=== PATIENT | female | born 2000 | race Hispanic/Latino ===

== ENCOUNTER 2022-10-03 21:30 | Emergency (ER) | payer OTHER ==
[~2022-10-03] VITALS: Ht 154.9 cm; Wt 57.0 kg
[2022-10-04 05:32] LABS: BASO % 0.6 % (0.0-1.0); EOS # 0.2 10^3/uL (0.0-0.5); EOS % 2.7 % (0.0-3.0); HEMATOCRIT 33.6 % (36.0-47.0); HEMOGLOBIN 11.5 g/dl (12.0-15.5); MEAN CORPUSCULAR HEMOGLOBIN 29.9 pg (27.0-33.0); MEAN CORPUSCULAR HGB CONC 34.2 g/dl (32.0-36.5); MEAN CORPUSCULAR VOLUME 87.3 fl (80.0-96.0); MONO # 0.6 10^3/uL (0.0-0.8); MONO % 9.1 % (2.0-8.0); NEUTROPHILS % 58.2 % (36.0-66.0); PLATELET COUNT, AUTOMATED 272 10^3/uL (150-450); RED BLOOD COUNT 3.85 10^6/uL (4.00-5.40); WHITE BLOOD COUNT 6.9 10^3/uL (4.0-10.0)
[2022-10-04 05:51] LABS: LIPASE 26 U/L (12-53)
[2022-10-04 05:53] LABS: ALBUMIN 3.5 G/DL (3.2-5.2); ALKALINE PHOSPHATASE 53 U/L (46-116); ALT/SGPT 13 U/L (7.0-40); AST/SGOT 17 U/L (<34); BILIRUBIN,DIRECT 0.1 MG/DL (<0.4); BILIRUBIN,TOTAL 0.4 MG/DL (0.3-1.2); BLOOD UREA NITROGEN 9 MG/DL (9-23); CALCIUM LEVEL 8.7 MG/DL (8.5-10.1); CARBON DIOXIDE LEVEL 23 MMOL/L (20-31); CHLORIDE LEVEL 106 MMOL/L (98-107); CREATININE FOR GFR 0.57 MG/DL (0.55-1.30); GLOMERULAR FILTRATION RATE > 60.0 (>60); GLUCOSE, FASTING 83 MG/DL (60-100); POTASSIUM SERUM 3.8 MMOL/L (3.5-5.1); SODIUM LEVEL 137 MMOL/L (136-145); TOTAL PROTEIN 6.4 G/DL (5.7-8.2)
[2022-10-04 06:21] LABS: HCG, SERUM QUANTITATIVE 145231.9 MIU/ML (<4.2)
[2022-10-04] MEDS ORDERED: NS 1,000 ML IV ONE (07:10)
[2022-10-04 07:42] LABS: APPEARANCE, URINE HAZY (CLEAR); BACTERIA, URINE AUTO NEGATIVE (NEGATIVE); BILIRUBIN, URINE AUTO NEGATIVE (NEGATIVE); BLOOD, URINE BLOOD NEGATIVE (NEGATIVE); COLOR, URINE YELLOW (YELLOW); GLUCOSE, URINE (UA) AUTO NEGATIVE (NEGATIVE); KETONE, URINE AUTO 1+ mg/dL (NEGATIVE); LEUKOCYTE ESTERASE, URINE AUTO 2+ (NEGATIVE); MUCUS, URINE SMALL (NEGATIVE); NITRITE, URINE AUTO NEGATIVE (NEGATIVE); PROTEIN, URINE AUTO NEGATIVE (NEGATIVE); RBC, URINE AUTO 1 /HPF (0-3); SPECIFIC GRAVITY URINE AUTO 1.009 (1.002-1.035); SQUAMOUS EPITHELIAL CELL UR AU 4 /HPF (0-6); UROBILINOGEN, URINE AUTO 0.2 mg/dL (0.0-2.0); WBC, URINE AUTO 1 /HPF (0-3)
[2022-10-04 11:06] VITALS: BP 112/60
== END 2022-10-04 11:31 | disposition home or self-care (01) ==
LOC: M ED 21:30
DX: O99.611 Diseases of the digestive system complicating pregnancy, first trimester (principal); Z3A.12 12 weeks gestation of pregnancy

== ENCOUNTER 2023-04-07 19:44 | Outpatient (CLI) | payer OTHER ==
[~2023-04-07] VITALS: Ht 154.9 cm; Wt 76.0 kg
[2023-04-07] MEDS ORDERED: HOME MED LIST COMPLETE! XX SCH (19:55)
[2023-04-07] MEDS ORDERED: IRON27TA2 PO (19:55)
[2023-04-07] MEDS ORDERED: PRENTAB9 PO (19:55)
[2023-04-07] MEDS ORDERED: VITA500C24 PO (19:55)
[2023-04-07 20:03] VITALS: BP 126/66
== END 2023-04-07 20:56 | disposition home or self-care (01) ==
LOC: M LDO 19:44
PROVIDERS: ATTEND Obstetrics & Gynecology
DX: O47.1 False labor at or after 37 completed weeks of gestation (principal); Z3A.39 39 weeks gestation of pregnancy; Z91.040 Latex allergy status; Z91.018 Allergy to other foods
CPT/HCPCS: 59025; G0463

== ENCOUNTER 2023-04-21 15:59 | Inpatient (IN) | payer OTHER ==
[~2023-04-21] VITALS: Ht 154.9 cm; Wt 75.2 kg
[2023-04-21] VITALS (8 sets, daily range): BP systolic 112–138; BP diastolic 55–72; O2SAT 97
[~2023-04-21 15:59] MED LIST: IRON27TA2 PO; PRENTAB9 PO; VITA500C24 PO
[2023-04-21] MEDS ORDERED: LACTATED RINGER'S 1000 ML IV STA (16:14)
[2023-04-21] MEDS ORDERED: OXYTOCIN DRIP 30 UNITS in IV 1 EA IV PRN ×6 (16:15)
[2023-04-21] MEDS ORDERED: TRANEXAMIC ACID INJection 1,000 MG in NS 100 ML IV PRN (16:15)
[2023-04-21] MEDS ORDERED: HOME MED LIST COMPLETE! XX SCH (16:15)
[2023-04-21] MEDS ORDERED: LIDOCAINE 1% MDV 20ML VIAL INFIL PRN (16:15)
[2023-04-21] MEDS ORDERED: OXYTOCIN DRIP 30 UNITS in IV 1 EA IV SCH (16:15)
[2023-04-21] MEDS ORDERED: METHYLERGONOVINE MALEATE 0.2MG/ML 1ML VIAL IM PRN (16:15)
[2023-04-21] MEDS ORDERED: OXYTOCIN INJ 10UNITS/ML 1ML VIAL IM PRN (16:15)
[2023-04-21] MEDS ORDERED: OXYTOCIN INJ 10UNITS/ML 1ML VIAL IV PRN (16:15)
[2023-04-21] MEDS ORDERED: LR 1,000 ML IV SCH (16:15)
[2023-04-21] MEDS ORDERED: CARBOPROST TROMETHAMINE 250 MCG/ML AMP IM PRN (16:15)
[2023-04-21] MEDS: miSOPROStol 50MCG 1/2 TABLET PO PRN ×2 (17:11→21:47)
[2023-04-21 17:40] LABS: HEMATOCRIT 36.1 % (36.0-47.0); HEMOGLOBIN 12.4 g/dl (12.0-15.5); MEAN CORPUSCULAR HEMOGLOBIN 31.4 pg (27.0-33.0); MEAN CORPUSCULAR HGB CONC 34.3 g/dl (32.0-36.5); MEAN CORPUSCULAR VOLUME 91.4 fl (80.0-96.0); PLATELET COUNT, AUTOMATED 275 10^3/uL (150-450); RED BLOOD COUNT 3.95 10^6/uL (4.00-5.40); WHITE BLOOD COUNT 7.8 10^3/uL (4.0-10.0)
[2023-04-21] MEDS ORDERED: PENICILLIN G POTASSIUM 5 MU IV 5 MU in D5W MINI-BAG PLUS 100 ML IV ONE (20:20)
[2023-04-21] MEDS ORDERED: **PENDING PCN ENTRY XX SCH (21:00)
[2023-04-22] VITALS (50 sets, daily range): BP systolic 103–182; BP diastolic 52–96
[2023-04-22] MEDS: miSOPROStol 50MCG 1/2 TABLET PO PRN ×2 (02:34→07:10)
[2023-04-22 07:18] LABS: TOTAL PROTEIN,RANDOM URINE 10.9 MG/DL (0.0-14.0)
[2023-04-22 07:23] LABS: CREATININE,RANDOM URINE 60.7 MG/DL
[2023-04-22] MEDS ORDERED: PENICILLIN G POTASSIUM 5 MU IV 5 MU in D5W MINI-BAG PLUS 100 ML IV STA (13:03)
[2023-04-22] MEDS: LR 1,000 ML IV SCH ×2 (13:23→17:37)
[2023-04-22] MEDS ORDERED: PROMETHAZINE 25MG/ML 1ML VIAL IV PRN (14:45)
[2023-04-22] MEDS ORDERED: NALBUPHINE HCL 1MG/0.1ML (100MG/10ML) MDV IV PRN (14:45)
[2023-04-22] MEDS ORDERED: ePHEDrine SULFATE 25 MG/5 ML(5MG/ML) SYRINGE IVP PRN (17:25)
[2023-04-22] MEDS ORDERED: ONDANSETRON 4MG 2ML VIAL IV PRN (17:25)
[2023-04-22] MEDS ORDERED: LR 500 ML IV PRN (17:25)
[2023-04-22] MEDS ORDERED: diphenhydrAMINE 50MG/ML VIAL IV PRN (17:25)
[2023-04-22] MEDS ORDERED: EPIDURAL/PCA KEYS XX PRN (17:25)
[2023-04-22] MEDS ORDERED: NALOXONE INJ 0.4MG/1ML VIAL IV PRN (17:25)
[2023-04-22] MEDS ORDERED: FENTANYL/ROPIVACAINE/NACL BAG 100 ML EPIDURAL SCH ×2 (17:25)
[2023-04-22] MEDS ORDERED: PEN G POT 3,000,000 UNIT/50 ML 3,000,000 UNIT in IV 1 EA IV SCH (17:30)
[2023-04-23] VITALS (14 sets, daily range): BP systolic 100–175; BP diastolic 51–89; O2SAT 97–98
[2023-04-23] MEDS ORDERED: IBUPROFEN 600MG TAB PO PRN (01:10)
[2023-04-23] MEDS ORDERED: ACETAMINOPHEN 500 MG TAB PO PRN (01:10)
[2023-04-23] MEDS ORDERED: ACETAMINOPHEN TAB 650MG DOSE (2X325MG) PO PRN (01:10)
[2023-04-23] MEDS ORDERED: MOM 30ML SUSPENSION UDC PO PRN (01:10)
[2023-04-23] MEDS ORDERED: METHYLERGONOVINE MALEATE 0.2 MG TAB PO PRN (01:10)
[2023-04-23] MEDS ORDERED: RHOGAM 300MCG (1500IU) INJ IM SCH (01:10)
[2023-04-23] MEDS ORDERED: DOCUSATE SODIUM 100MG CAPSULE PO PRN (01:10)
[2023-04-23] MEDS ORDERED: OXYTOCIN DRIP 30 UNITS in IV 1 EA IV SCH ×4 (01:10)
[2023-04-23] MEDS ORDERED: ONDANSETRON 4MG 2ML VIAL IV PRN (01:10)
[2023-04-23] MEDS ORDERED: AMPICILLIN SOD/SULBACTAM SOD 3 GM in D5W MINI-BAG PLUS 100 ML IV ONE (02:00)
[2023-04-23] MEDS: LR 1,000 ML IV SCH ×3 (02:40→17:10)
[2023-04-23] MEDS: IBUPROFEN 800 MG TAB PO PRN ×3 (02:43→09:48)
[2023-04-23] MEDS: DIBUCAINE 1% OINTMENT 30GM TOP PRN (05:20)
[2023-04-23] MEDS ORDERED: PRENATAL VITAMINS CHEWABLE TABLET PO SCH (09:00)
[2023-04-23] MEDS: PRENATAL VITAMINS CHEWABLE TABLET PO SCH (09:38)
[2023-04-24 06:00] VITALS: BP 113/64
[2023-04-24] MEDS: PRENATAL VITAMINS CHEWABLE TABLET PO SCH (09:48)
[2023-04-24] MEDS: IBUPROFEN 800 MG TAB PO PRN (09:49)
[2023-04-24] MEDS: DIBUCAINE 1% OINTMENT 30GM TOP PRN (17:49)
[2023-04-24 18:00] VITALS: BP 118/67; O2SAT 99
[2023-04-25 06:00] VITALS: BP 125/58; O2SAT 97
[2023-04-25] MEDS: PRENATAL VITAMINS CHEWABLE TABLET PO SCH (07:33)
[2023-04-25] MEDS ORDERED: MEASLES,MUMPS,RUBELLA VACCINE INJ (MMR-II) SC.IMMUN ONE (09:00)
[2023-04-25] MEDS ORDERED: IBUP-1022 PO (10:58)
[2023-04-25] MEDS ORDERED: COLA100C5 PO (10:58)
[2023-04-25] MEDS ORDERED: ACET1TAB55 PO (10:58)
== END 2023-04-25 12:10 | disposition home or self-care (01) | DRG 807 ==
LOC: M LDI 15:59 → M OBS 04-23 05:06
PROVIDERS: ADMIT Obstetrics & Gynecology; ATTEND Obstetrics & Gynecology
PROC: 3E0P7GC Introduction of Other Therapeutic Substance into Female Reproductive, Via Natural or Artificial Opening (ICD-10-PCS; 2023-04-21)
PROC: 10E0XZZ Delivery of Products of Conception, External Approach (ICD-10-PCS; principal; 2023-04-23)
PROC: 0HQ9XZZ Repair Perineum Skin, External Approach (ICD-10-PCS; 2023-04-23)
DX: O48.0 Post-term pregnancy (principal); Z37.0 Single live birth; Z3A.41 41 weeks gestation of pregnancy; O99.824 Streptococcus B carrier state complicating childbirth; Z91.040 Latex allergy status; Z91.018 Allergy to other foods; Z79.899 Other long term (current) drug therapy; O70.0 First degree perineal laceration during delivery; O73.1 Retained portions of placenta and membranes, without hemorrhage; O75.89 Other specified complications of labor and delivery